=== PATIENT | male | born 1980 | race American Indian/Alaskan Native ===

== ENCOUNTER 2020-09-04 09:41 | Observation (INO) | payer SELFPAY ==
--- NOTE | 2020-09-04 10:10 | XRay Report ---
CHEST 1 VIEW 09/04/2020 9:03 AM INDICATION / CLINICAL INFORMATION: Chest Pain. COMPARISON: 09/20/2012 FINDINGS: SUPPORT DEVICES: None. HEART / MEDIASTINUM: No significant abnormality. LUNGS / PLEURA: No significant pulmonary or pleural abnormality. No pneumothorax. ADDITIONAL FINDINGS: No significant additional findings. IMPRESSION: No acute abnormality. Signer Name: Khadar Pavon MD Signed: 09/04/2020 10:05 AM Workstation Name: [id number]
[2020-09-04 11:03] LABS: Basophils % (Auto) 0.8 % (0.0-1.8); Eosinophils # (Auto) 0.3 K/mm3 (0.0-0.4); Hematocrit 39.7 % (35.5-45.6); Hemoglobin 13.7 gm/dl (11.8-15.2); Lymphocytes # (Auto) 2.3 K/mm3 (1.2-5.4); Lymphocytes % (Auto) 35.6 % (13.4-35.0); Mean Corpuscular HGB Conc 35 % (32-34); Mean Corpuscular Volume 84 fl (84-94); Monocytes # (Auto) 0.4 K/mm3 (0.0-0.8); Monocytes % (Auto) 5.7 % (0.0-7.3); Platelet Count 215 K/mm3 (140-440); Red Blood Count 4.72 M/mm3 (3.65-5.03); Red Cell Distribution Width 12.9 % (13.2-15.2)
[2020-09-04 11:35] LABS: BUN/Creatinine Ratio 13; Blood Urea Nitrogen 14 mg/dL (9-20); Calcium 9.1 mg/dL (8.4-10.2); Hemolysis Index 25
[2020-09-04] MEDS ORDERED: ONDANSETRON 4 MG ODT TAB PO ONE (14:28)
[2020-09-04] MEDS ORDERED: ALUM-MAG HYDROXIDE-SIMETHICONE 200-200-20MG/5ML ORAL LIQD 30 ML PO ONE (14:28)
[2020-09-04] MEDS ORDERED: HYOSCYAMINE SUBL 0.125 MG TAB SL ONE (14:28)
--- NOTE | 2020-09-04 14:49 | Emergency Department Report ---
<CED VALENZUELA III - Last Filed: 09/04/20 19:28> ED General Adult HPI - General Chief complaint: Chest Pain Stated complaint: CP Time Seen by Provider: 09/04/20 14:22 - Related Data Home Medications Medication Instructions Recorded Confirmed Last Taken Unobtainable 09/04/20 09/04/20 Unknown Allergies Allergy/AdvReac Type Severity Reaction Status Date / Time No Known Allergies Allergy Verified 09/12/15 20:27 ED Past Medical Hx - Medications Home Medications: Home Medications Medication Instructions Recorded Confirmed Last Taken Type Unobtainable 09/04/20 09/04/20 Unknown History ED Course - Reevaluation(s) Reevaluation #2: I reviewed the findings and management of this patient in real-time and I have personally seen and examined this patient and participated in the decision making for this patient with the midlevel. Patient is a 40-year-old male that presents emergency room with right upper quadrant pain. Patient had an ultrasound which showed possible acute cholecystitis. General surgery was cons ulted by the midlevel. General surgery recommends admission to the hospital. I discussed all results with patient. I discussed plan of care with patient. Patient agrees with plan of care and admission. Patient to be admitted to the hospitalist service. 09/04/20 19:29 - Consultations Consultation #1: Hospitalist consulted for admission. Hospitalist to admit patient. 09/04/20 18:29 ED Medical Decision Making - Lab Data Result diagrams: 09/04/20 10:20 09/04/20 10:20 Critical Care Time: Yes Critical care time in (mins) excluding proc time.: 35 Critical Care Time: 35 minutes ED Disposition Clinical Impression: Epigastric abdominal pain, Acute cholecystitis, Nausea Cholelithiases Qualifiers: Cholelithiasis location: gallbladder Cholecystitis presence: with cholecystitis Cholecystitis acuity: acute Biliary obstruction: without biliary obstruction Qualified Code(s): K80.00 - Calculus of gallbladder with acute cholecystitis without obstruction Disposition: OP ADMIT IP TO THIS HOSP Is pt being admited?: Yes Does the pt Need Aspirin: No Condition: Critical Time of Disposition: 19:30 <KOURTNEY TAYLOR - Last Filed: 09/04/20 21:24> ED General Adult HPI - General Source: patient Mode of arrival: Ambulatory Limitations: No Limitations - History of Present Illness Initial comments: Patient is a 40-year-old male presents emergency room with complaints of epigastric abdominal pain that began 2 days ago. He states that the pain is intermittent sharp stabbing pain. He states that when the pain comes on he feels like he wants to pass out and feels short of breath. He states that when the pain resolves he does not have shortness of breath. He states that the pain feels like it radiates up into the chest. He has associated nausea. He denies any vomiting, diarrhea, fever, leg swelling, cough. He denies any recent travel, recent surgery, recent immobilization, hormone use, sick contacts. He has a past medical history of diabetes. No allergies to medications. He denies any past abdominal surgical history. He states he had a normal bowel movement this morning. He denies any family cardiac history or family history of DVT/PE. ED Review of Systems ROS: Stated complaint: CP Other details as noted in HPI Comment: All other systems reviewed and negative ED Past Medical Hx - Social History Smoking Status: Never Smoker ED Physical Exam - General Limitations: No Limitations General appearance: alert, in no apparent distress - Head Head exam: Present: atraumatic, normocephalic - Eye Eye exam: Present: normal appearance - ENT ENT exam: Present: mucous membranes moist - Respiratory Respiratory exam: Present: normal lung sounds bilaterally. Absent: respiratory distress, wheezes, rales, rhonchi, stridor, chest wall tenderness, accessory muscle use, decreased breath sounds, prolonged expiratory - Cardiovascular Cardiovascular Exam: Present: regular rate, normal rhythm, normal heart sounds. Absent: systolic murmur, diastolic murmur, rubs, gallop - GI/Abdominal GI/Abdominal exam: Present: soft, tenderness (epigastric), normal bowel sounds, other (negative murphys sign, no mcburneys point ttp, negative garcia turners and cullens sign ). Absent: distended, guarding, rebound, rigid - Neurological Exam Neurological exam: Present: alert, oriented X3 - Psychiatric Psychiatric exam: Present: normal affect, normal mood - Skin Skin exam: Present: warm, dry, intact ED Course Vital Signs 09/04/20 09/04/20 09/04/20 09:43 18:31 18:40 Temperature 98.5 F Pulse Rate 81 78 Respiratory 20 16 16 Rate Blood Pressure 146/95 Blood Pressure 136/90 [Left] O2 Sat by Pulse 100 99 99 Oximetry - Reevaluation(s) Reevaluation #1: 09/04/20 18:[address] Valenzuela, ER attending advised to discuss with general surgery 09/04/20 18:[address] Powers, general surgery regarding patient history, presentation, results, advised that patient is not having vomiting, fever, no leukocytosis, he states that given ultrasound findings of possible acute cholecystitis, he advised to admit patient to hospital service, give Zosyn, have patient n.p.o. at midnight, will evaluate tomorrow morning for possible surgery 09/04/20 18:[address] Arriola, hospitalist will call back, currently with another patient, advised may be given to overnight hospitalist 09/04/20 18:[address] Arriola, hospitalist who will accept and resume care of patient, will admit to hospitalist service ED Medical Decision Making - Lab Data Result diagrams: 09/04/20 10:20 09/04/20 10:20 Lab Results 09/04/20 09/04/20 09/04/20 Range/Units 10:20 10:20 12:47 WBC 6.4 (4.5-11.0) K/mm3 RBC 4.72 (3.65-5.03) M/mm3 Hgb 13.7 (11.8-15.2) gm/dl Hct 39.7 (35.5-45.6) % MCV 84 (84-94) fl MCH 29 (28-32) pg MCHC 35 H (32-34) % RDW 12.9 L (13.2-15.2) % Plt Count 215 (140-440) K/mm3 Lymph % (Auto) 35.6 H (13.4-35.0) % [place] % (Auto) 5.7 (0.0-7.3) % Eos % (Auto) 5.0 H (0.0-4.3) % Baso % (Auto) 0.8 (0.0-1.8) % Lymph # (Auto) 2.3 (1.2-5.4) K/mm3 [place] # (Auto) 0.4 (0.0-0.8) K/mm3 Eos # (Auto) 0.3 (0.0-0.4) K/mm3 Baso # (Auto) 0.0 (0.0-0.1) K/mm3 Seg Neutrophils % 52.9 (40.0-70.0) % Seg Neutrophils # 3.4 (1.8-7.7) K/mm3 Sodium 136 L (137-145) mmol/L Potassium 4.1 (3.6-5.0) mmol/L Chloride 101.9 (98-107) mmol/L Carbon Dioxide 25 (22-30) mmol/L Anion Gap 13 mmol/L BUN 14 (9-20) mg/dL Creatinine 1.1 (0.8-1.3) mg/dL Estimated GFR > 60 ml/min BUN/Creatinine Ratio 13 % Glucose 225 H (75-100) mg/dL Calcium 9.1 (8.4-10.2) mg/dL Total Bilirubin (0.1-1.2) mg/dL Direct Bilirubin (0-0.2) mg/dL Indirect Bilirubin mg/dL AST (5-40) units/L ALT (7-56) units/L Alkaline Phosphatase (35-129) units/L Troponin T < 0.010 < 0.010 (0.00-0.029) ng/mL Total Protein (6.3-8.2) g/dL Albumin (3.9-5) g/dL Albumin/Globulin Ratio % Lipase (13-60) units/L 10/30/20 Range/Units 14:27 WBC (4.5-11.0) K/mm3 RBC (3.65-5.03) M/mm3 Hgb (11.8-15.2) gm/dl Hct (35.5-45.6) % MCV (84-94) fl MCH (28-32) pg MCHC (32-34) % RDW (13.2-15.2) % Plt Count (140-440) K/mm3 Lymph % (Auto) (13.4-35.0) % [place] % (Auto) (0.0-7.3) % Eos % (Auto) (0.0-4.3) % Baso % (Auto) (0.0-1.8) % Lymph # (Auto) (1.2-5.4) K/mm3 [place] # (Auto) (0.0-0.8) K/mm3 Eos # (Auto) (0.0-0.4) K/mm3 Baso # (Auto) (0.0-0.1) K/mm3 Seg Neutrophils % (40.0-70.0) % Seg Neutrophils # (1.8-7.7) K/mm3 Sodium (137-145) mmol/L Potassium (3.6-5.0) mmol/L Chloride (98-107) mmol/L Carbon Dioxide (22-30) mmol/L Anion Gap mmol/L BUN (9-20) mg/dL Creatinine (0.8-1.3) mg/dL Estimated GFR ml/min BUN/Creatinine Ratio % Glucose (75-100) mg/dL Calcium (8.4-10.2) mg/dL Total Bilirubin 0.40 (0.1-1.2) mg/dL Direct Bilirubin < 0.2 (0-0.2) mg/dL Indirect Bilirubin 0.2 mg/dL AST 33 (5-40) units/L ALT 43 (7-56) units/L Alkaline Phosphatase 68 (35-129) units/L Troponin T (0.00-0.029) ng/mL Total Protein 8.0 (6.3-8.2) g/dL Albumin 4.6 (3.9-5) g/dL Albumin/Globulin Ratio 1.4 % Lipase 24 (13-60) units/L - EKG Data EKG shows normal: sinus rhythm, intervals, QRS complexes Rate: normal - EKG Data 09/04/20 21:23 no STEMI - Radiology Data Radiology results: report reviewed CT ABDOMEN AND PELVIS WITH CONTRAST INDICATION: Upper abdominal pain CONTRAST: 100 cc Omnipaque 300 IV COMPARISON: None available. All CT scans at this location are performed using CT dose reduction for ALARA by means of automated exposure control. FINDINGS: Lung bases are clear. No pneumoperitoneum is noted. Mild fatty infiltration of the liver is seen without obvious focal lesion. Liver is at the upper end of the normal range in size and has a length of 17.9 cm. Spleen appears within normal limits. I see no abnormalities of the kidneys, adrenals, pancreas, or bile ducts. Gallbladder appears markedly contracted and contains a diffuse band of hyperdensity which I believe likely represents innumerable tiny calculi with at least 2 larger calculi measuring up to 3 mm. Gallbladder wall appears edematous. No bowel or urinary obstructive changes are seen. No lymphadenopathy is noted. No free fluid is seen. Appendix appears within normal limits. IMPRESSION: Cholelithiasis in a contracted gallbladder with apparent wall edema. Findings could indicate acute cholecystitis. Clinical correlation is suggested. Hepatobiliary scintigraphy and ultrasound may be useful. Signer Name: Matthew Alonso MD Signed: 09/04/2020 4:07 PM Workstation Name: [id number] Transcribed By: Dictated By: Matthew Alonso MD Electronically Authenticated By: Matthew Alonso MD Signed Date/Time: 09/04/20 1607 DD/ 1600 TD/TT: Ordering Physician: MASON GUSMAN Date of Service: 09/04/20 Procedure(s): US abdomen limited Accession Number(s): [id number] cc: MASON GUSMAN ULTRASOUND ABDOMEN, LIMITED (RIGHT UPPER QUADRANT) INDICATION / CLINICAL INFORMATION: upper abd pain, abnormal CT. COMPARISON: CT abdomen and pelvis dated 09/04/2020 FINDINGS: PANCREAS: Visualized portion shows no significant abnormality. LIVER: No significant abnormality. GALLBLADDER: There is an calcified gallstone at the gallbladder neck. The gallbladder is contracted. There is significant gallbladder wall thickening measuring 4 mm in greatest diameter. Sonographic Hardwick sign was negative. BILE DUCTS: No significant abnormality. Common bile duct measures 3 mm. FREE FLUID: None. ADDITIONAL FINDINGS: None. IMPRESSION: 1. Calcified gallstone noted at the gallbladder neck. There is gallbladder wall thickening however this could be secondary to it being collapsed. With the Sonographic Hardwick sign being negative, nuclear medicine HIDA scan would be helpful for evaluation of acute cholecystitis. Signer Name: Mainor Eugene MD Signed: 09/04/2020 6:14 PM Workstation Name: [id number] Transcribed By: Dictated By: MAINOR EUGENE Electronically Authenticated By: MAINOR EUGENE Signed Date/Time: 09/04/201813 DD/ 05 TD/TT: CXR with no acute process - Medical Decision Making Patient is a 40-year-old male presents emergency room with complaints of epigastric abdominal pain that began 2 days ago. He states that the pain is intermittent sharp stabbing pain. He states that when the pain comes on he feels like he wants to pass out and feels short of breath. He states that when the pain resolves he does not have shortness of breath. He states that the pain feels like it radiates up into the chest. He has associated nausea. He denies any vomiting, diarrhea, fever, leg swelling, cough. He denies any recent travel, recent surgery, recent immobilization, hormone use, sick contacts. He has a past medical history of diabetes. No allergies to medications. He denies any past abdominal surgical history. He states he had a normal bowel movement this morning. He denies any family cardiac history or family history of DVT/PE. VSS. on exam: epigastric abd ttp, no guarding, no rebound, no rigidity, no peritoneal signs, normal bowel sounds. labs are stable. CXR with no acute process. labs and XR and EKG ordered prior to my examination. he is presenting for abd pain not chest pain. CT abd pelvis: Cholelithiasis in a contracted gallbladder with apparent wall edema. Findings could indicate acute cholecystitis. Clinical correlation is suggested. Hepatobiliary scintigraphy and ultrasound may be useful. US abdomen: 1. Calcified gallstone noted at the gallbladder neck. There is gallbladder wall thickening however this could be secondary to it being collapsed. With the Sonographic Hardwick sign being negative, nuclear medicine HIDA scan would be helpful for evaluation of acute cholecystitis. discussed case with Dr. Valenzuela, ER attending advised to discuss with general surgery. Spoke to Dr. Powers, general surgery regarding patient history, presentation, results, advised that patient is not having v omiting, fever, no leukocytosis, he states that given ultrasound findings of possible acute cholecystitis, he advised to admit patient to hospital service, give Zosyn, have patient n.p.o. at midnight, will evaluate tomorrow morning for possible surgery. discussed with Dr. Arriola, hospitalist who will accept and resume care of patient, will admit to hospitalist service. - Differential Diagnosis Cholecystitis, cholelithiasis, pancreatitis, obstruction, GERD, PUD Critical care attestation.: If time is entered above; I have spent that time in minutes in the direct care of this critically ill patient, excluding procedure time. ED Disposition Is pt being admited?: Yes Does the pt Need Aspirin: No
[2020-09-04 15:54] LABS: Alanine Aminotransferase 43 units/L (7-56); Albumin 4.6 g/dL (3.9-5)
--- NOTE | 2020-09-04 16:12 | Cat Scan Report ---
CT ABDOMEN AND PELVIS WITH CONTRAST INDICATION: Upper abdominal pain CONTRAST: 100 cc Omnipaque 300 IV COMPARISON: None available. All CT scans at this location are performed using CT dose reduction for ALARA by means of automated e xposure control. FINDINGS: Lung bases are clear. No pneumoperitoneum is noted. Mild fatty infiltration of the liver is seen without obvious focal lesion. Liver is at the upper end of the normal range in size and has a l ength of 17.9 cm. Spleen appears within normal limits. I see no abnormalities of the kidneys, adrenal s, pancreas, or bile ducts. Gallbladder appears markedly contracted and contains a diffuse band of hyperdensity which I believe l ikely represents innumerable tiny calculi with at least 2 larger calculi measuring up to 3 mm. Gallbl adder wall appears edematous. No bowel or urinary obstructive changes are seen. No lymphadenopathy is noted. No free fluid is seen. Appendix appears within normal limits. IMPRESSION: Cholelithiasis in a contracted gallbladder with apparent wall edema. Findings could indic ate acute cholecystitis. Clinical correlation is suggested. Hepatobiliary scintigraphy and ultrasound may be useful. Signer Name: Matthew Alonso MD Signed: 09/04/2020 4:07 PM Workstation Name: [id number]
[2020-09-04 16:21] LABS: Bilirubin,Direct < 0.2 mg/dL (0-0.2)
--- NOTE | 2020-09-04 18:18 | Ultrasound Report ---
ULTRASOUND ABDOMEN, LIMITED (RIGHT UPPER QUADRANT) INDICATION / CLINICAL INFORMATION: upper abd pain, abnormal CT. COMPARISON: CT abdomen and pelvis dated 09/04/2020 FINDINGS: PANCREAS: Visualized portion shows no significant abnormality. LIVER: No significant abnormality. GALLBLADDER: There is an calcified gallstone at the gallbladder neck. The gallbladder is contracted. There is significant gallbladder wall thickening measuring 4 mm in greatest diameter. Sonographic Mur phy sign was negative. BILE DUCTS: No significant abnormality. Common bile duct measures 3 mm. FREE FLUID: None. ADDITIONAL FINDINGS: None. IMPRESSION: 1. Calcified gallstone noted at the gallbladder neck. There is gallbladder wall thickening however th is could be secondary to it being collapsed. With the Sonographic Hardwick sign being negative, nuclear medicine HIDA scan would be helpful for evaluation of acute cholecystitis. Signer Name: Mainor Simeon MD Signed: 09/04/2020 6:14 PM Workstation Name: [id number]
[2020-09-04] MEDS ORDERED: PIPERACIL/TAZOBACTA 4.5/NS 100 4.5 GM/100 ML VIAL IV ONE (18:34)
--- NOTE | 2020-09-04 19:09 | History and Physical Report ---
History of Present Illness Chief complaint: I am having pain History of present illness: 40-year-old male with obesity presents to ED for evaluation. Patient states that he has experienced abdominal pain over the past 2 days with persistent symptoms over the same timeframe. Patient states that his pain is intermittent, sharp, 56/10, stabbing in nature, without exacerbating or alleviating factors. Patient knowledges nausea. Patient transported to [facility] via private vehicle for further care and evaluation. Patient seen and evaluated in the emergency department. Lab and imaging studies reviewed. Patient underwent CT scan of the abdomen and pelvis which showed findings consistent with acute cholecystitis. Surgical team consulted in ED. Patient pending surgical intervention as per surgical team. Patient denies fever, chills, chest pain, palpitation, productive cough, skin rash, recent ill contacts, or known exposure to COVID-19. No prior admission for review. No medication listed at time of admission for reconciliation. Past History Past Medical History: other (See HPI) Past Surgical History: No surgical history, Other (Reviewed) Social history: . denies: smoking, alcohol abuse, prescription drug abuse Family history: no significant family history Medications and Allergies Allergies Allergy/AdvReac Type Severity Reaction Status Date / Time No Known Allergies Allergy Verified 09/12/15 20:27 Home Medications Medication Instructions Recorded Confirmed Last Taken Type Unobtainable 09/04/20 09/04/20 Unknown History Review of Systems Constitutional: no weight loss, no weight gain, no fever, no chills Ears, nose, mouth and throat: no ear pain, no ear discharge, no nose pain, no nasal congestion Cardiovascular: no chest pain, no orthopnea, no rapid/irregular heart beat, no syncope Respiratory: no cough, no excessive sputum, no shortness of breath Gastrointestinal: abdominal pain, nausea, no vomiting, no melena, no hematochezia Genitourinary Male: no hematuria, no flank pain, no discharge, no urinary hesitancy, no nocturia Rectal: no pain, no incontinence Musculoskeletal: no neck stiffness, no neck pain Integumentary: no rash, no redness, no sores Neurological: no head injury, no transient paralysis, no weakness, no parathesias Psychiatric: no anxiety, no change in sleep habits, no insomnia, no change in libido, no hallucinations Endocrine: no heat intolerance, no polyphagia Hematologic/Lymphatic: no easy bruising, no easy bleeding, no lymphadenopathy Allergic/Immunologic: no allergic rhinitis, no wheezing, no persistent infections, no angioedema Exam - Constitutional Vitals: Temp Pulse Resp BP Pulse Ox 98.5 F 78 16 136/90 99 09/04/20 09:43 09/04/20 18:31 09/04/20 18:40 09/04/20 18:31 09/04/20 18:40 General appearance: Present: mild distress - EENT Eyes: Present: PERRL ENT: hearing intact, clear oral mucosa - Neck Neck: Present: supple, normal ROM - Respiratory Respiratory effort: normal Respiratory: bilateral: CTA - Cardiovascular Heart Sounds: Present: S1 & S2. Absent: rub, click - Extremities Extremities: pulses symmetrical, No edema Peripheral Pulses: within normal limits - Abdominal General gastrointestinal: Present: soft, tender, non-distended, normal bowel sounds Male genitourinary: Present: normal - Integumentary Integumentary: Present: clear, warm, dry - Musculoskeletal Musculoskeletal: gait normal, strength equal bilaterally - Psychiatric Psychiatric: appropriate mood/affect, intact judgment & insight - Neurologic Neurologic: CNII-XII intact, moves all extremities HEART Score - HEART Score Troponin: Troponin T < 0.010 ng/mL (0.00-0.029) 09/04/20 12:47 Results - Labs CBC & Chem 7: 09/04/20 10:20 09/04/20 10:20 Labs: Abnormal lab results 09/04/20 09/04/20 Range/Units 10: 10:20 MCHC 35 H (32-34) % RDW 12.9 L (13.2-15.2) % Lymph % (Auto) 35.6 H (13.4-35.0) % Eos % (Auto) 5.0 H (0.0-4.3) % Sodium 136 L (137-145) mmol/L Glucose 225 H (75-100) mg/dL Assessment and Plan - Patient Problems (1) Acute cholecystitis Current Visit: Yes Status: Acute Plan to address problem: CT scan abdomen and pelvis, surgical team consulted, patient pending surgical intervention as per surgical team. N.p.o., IV fluid resuscitation, bowel rest, pain control, supportive care. (2) Obesity (BMI 30.0-34.9) Current Visit: Yes Status: Acute Plan to address problem: Balanced diet, increase physical activity at discharge. (3) DVT prophylaxis Current Visit: Yes Status: Acute Plan to address problem: SCD to bilateral lower extremities while in bed, patient is ambulatory.
[2020-09-04] MEDS ORDERED: ONDANSETRON 4 MG/2 ML INJ IV PRN (19:10)
[2020-09-04] MEDS ORDERED: ACETAMINOPHEN 325 MG TAB PO PRN (19:10)
[2020-09-04] MEDS ORDERED: ALBUTEROL 2.5 MG/3 ML NEBU IH PRN (19:10)
[2020-09-05] MEDS: SODIUM CHLORIDE 0.9% 1000 ML 1,000 ML IV SCH ×2 (00:01→07:04)
[2020-09-05] MEDS: MORPHINE 2 MG/1 ML INJ IV PRN ×2 (07:00→20:46)
[2020-09-05] MEDS: INSULIN LISPRO 100 UNIT/ML VIAL 3 mL SUB-Q SCH ×4 (08:29→22:00)
[2020-09-05 09:30] LABS: BUN/Creatinine Ratio 8; Blood Urea Nitrogen 9 mg/dL (9-20); Calcium 8.6 mg/dL (8.4-10.2); Hemolysis Index 3
[2020-09-05] MEDS ORDERED: LIDOCAINE (1%) 10 MG/1 ML VIAL 20 ML MDV ONE (10:06)
[2020-09-05] MEDS ORDERED: BUPIVACAINE/PF (0.5%) 5 MG/1 ML 30 ML VIAL INFILTRATI ONE ×2 (10:06→11:25)
[2020-09-05] MEDS ORDERED: SODIUM CHLORIDE 0.9% 100 ML ONE (10:19)
--- NOTE | 2020-09-05 10:24 | Consultation ---
History of Present Illness Consult date: 09/05/20 Reason for consult: gallstones Chief complaint: Hx in chart verified by pt Upper abd pain for 2 days u/s and CT c/w acute cholecystitis No hx biliary colic/etc. No hx GI dz +DM (insulin)- last HgA1c unknown Past History Past Medical History: diabetes, other (See HPI) Past Surgical History: No surgical history, Other (Reviewed) Social history: . denies: smoking, alcohol abuse, prescription drug abuse Family history: no significant family history Medications and Allergies Allergies Allergy/AdvReac Type Severity Reaction Status Date / Time No Known Allergies Allergy Verified 09/12/15 20:27 Home Medications Medication Instructions Recorded Confirmed Last Taken Type Insulin Glargine/Lixisenatide 15 units SQ DAILY 09/05/20 09/05/20 Unknown History [Soliqua 100 Unit-33 Mcg/ml Pen] Active Meds: Active Medications Acetaminophen (Tylenol) 650 mg PO Q4H PRN PRN Reason: Pain MILD(1-3)/Fever >100.5/CROWE Albuterol (Proventil) 2.5 mg IH Q4HRT PRN PRN Reason: Shortness Of Breath Hydromorphone HCl (Dilaudid) 0.5 mg IV Q3H PRN PRN Reason: Pain , Severe (7-10) Sodium Chloride (Nacl 0.9% 1000 Ml) 1,000 mls @ 125 mls/hr IV DIRECT ARELY Last Admin: 09/05/20 07:04 Dose: 125 mls/hr Documented by: Insulin Human Lispro (Humalog) 0 unit SUB-Q ACHS ARELY; Protocol Last Admin: 09/05/20 08:29 Dose: Not Given Documented by: Morphine Sulfate (Morphine) 1 mg IV Q4H PRN PRN Reason: Pain, Moderate (4-6) Last Admin: 09/05/20 07:00 Dose: 1 mg Documented by: Ondansetron HCl (Zofran) 4 mg IV Q8H PRN PRN Reason: Nausea And Vomiting Sodium Chloride (Sodium Chloride Flush Syringe 10 Ml) 10 ml IV BID ARELY Last Admin: 09/05/20 08:33 Dose: Not Given Documented by: Sodium Chloride (Sodium Chloride Flush Syringe 10 Ml) 10 ml IV PRN PRN PRN Reason: LINE FLUSH Exam Vital Signs Temp Pulse Resp BP Pulse Ox 98.5 F 81 20 146/95 100 09/04/20 09:43 09/04/20 09:43 09/04/20 09:43 09/04/20 09:43 09/04/20 09:43 - General physical appearance Positive: well developed, no distress - Abdomen Abdomen: Present: soft, tender, bowel sounds normal, other (+mild TTP epig/RUQ; +mild Hardwick's sign; no scars/hernias). Absent: surgical scars Results - Labs 09/04/20 10:09/05/20 04:00 Abnormal lab results 09/04/20 09/04/20 09/04/20 Range/Units : 10: 23:34 MCHC 35 H (32-34) % RDW 12.9 L (13.2-15.2) % Lymph % (Auto) 35.6 H (13.4-35.0) % Eos % (Auto) 5.0 H (0.0-4.3) % Sodium 136 L (137-145) mmol/L Glucose 225 H (75-100) mg/dL POC Glucose 115 H (70-105) mg/dL 09/05/20 09/05/20 Range/Units 04:00 08:24 MCHC (32-34) % RDW (13.2-15.2) % Lymph % (Auto) (13.4-35.0) % Eos % (Auto) (0.0-4.3) % Sodium 135 L (137-145) mmol/L Glucose 144 H (75-100) mg/dL POC Glucose 132 H (70-105) mg/dL Diabetes panel 09/04/20 09/04/20 09/05/20 Range/Units : 14:27 04:00 Sodium 136 L 135 L (137-145) mmol/L Potassium 4.1 3.9 (3.6-5.0) mmol/L Chloride 101.9 101.1 (98-107) mmol/L Carbon Dioxide 25 26 (22-30) mmol/L BUN 14 9 (9-20) mg/dL Creatinine 1.1 1.1 (0.8-1.3) mg/dL Glucose 225 H 144 H (75-100) mg/dL Calcium 9.1 8.6 (8.4-10.2) mg/dL AST 33 (5-40) units/L ALT 43 (7-56) units/L Alkaline Phosphatase 68 (35-129) units/L Total Protein 8.0 (6.3-8.2) g/dL Albumin 4.6 (3.9-5) g/dL Calcium panel 09/04/20 09/04/20 09/05/20 Range/Units 10: 14:27 04:00 Calcium 9.1 8.6 (8.4-10.2) mg/dL Albumin 4.6 (3.9-5) g/dL Pituitary panel 09/04/20 09/05/20 Range/Units 10: 04:00 Sodium 136 L 135 L (137-145) mmol/L Potassium 4.1 3.9 (3.6-5.0) mmol/L Chloride 101.9 101.1 (98-107) mmol/L Carbon Dioxide 25 26 (22-30) mmol/L BUN 14 9 (9-20) mg/dL Creatinine 1.1 1.1 (0.8-1.3) mg/dL Glucose 225 H 144 H (75-100) mg/dL Calcium 9.1 8.6 (8.4-10.2) mg/dL Adrenal panel 09/04/20 09/04/20 09/05/20 Range/Units 10: 14:27 04:00 Sodium 136 L 135 L (137-145) mmol/L Potassium 4.1 3.9 (3.6-5.0) mmol/L Chloride 101.9 101.1 (98-107) mmol/L Carbon Dioxide 25 26 (22-30) mmol/L BUN 14 9 (9-20) mg/dL Creatinine 1.1 1.1 (0.8-1.3) mg/dL Glucose 225 H 144 H (75-100) mg/dL Calcium 9.1 8.6 (8.4-10.2) mg/dL Total Bilirubin 0.40 (0.1-1.2) mg/dL AST 33 (5-40) units/L ALT 43 (7-56) units/L Alkaline Phosphatase 68 (35-129) units/L Total Protein 8.0 (6.3-8.2) g/dL Albumin 4.6 (3.9-5) g/dL Assessment and Plan Early acute cholecystitis-- to OR for LC DM- pt aware that inc risk of infection/wound healing issues with DM diagnosis Surgical risk discussed (see consent)
--- NOTE | 2020-09-05 10:35 | Anesthesia Consultation ---
Anesthesia Consult and Med Hx Date of service: 09/05/20 - Airway Anesthetic Teeth Evaluation: Good ROM Head & Neck: Adequate Mental/Hyoid Distance: Adequate Mallampati Class: Class I Intubation Access Assessment: Good - Pulmonary Exam CTA: Yes - Cardiac Exam Cardiac Exam: RRR - Pre-Operative Health Status ASA Pre-Surgery Classification: ASA2 Proposed Anesthetic Plan: General - Pulmonary Hx Smoking: No Hx Respiratory Symptoms: No Hx Sleep Apnea: No - Cardiovascular System Hx Hypertension: No Hx Heart Attack/AMI: No Hx Angina: No Hx Pacemaker: No Hx Internal Defibrillator: No - Central Nervous System Hx Neuromuscular Disorder: No Hx Seizures: No CVA: No Hx Psychiatric Problems: No - Endocrine Hx Renal Disease: No Hx Liver Disease: No Hx Insulin Dependent Diabetes: Yes Hx Thyroid Disease: No - Other Systems Hx Alcohol Use: Yes (Occasinally) Hx Cancer: No Hx Obesity: Yes (BMI- 30.1kg) - Additional Comments Anesthesia Medical History Comments: Denied anesthesia related complication
--- NOTE | 2020-09-05 10:36 | Anesthesia Day of Surgery ---
Anesthesia Day of Surgery - Day of Surgery Patient Examined: Yes Patient H&P Reviewed: Yes Patient is NPO: Yes Beta Blockers: No Cardiac Clearance: No Pulmonary Clearance: No
[2020-09-05] MEDS ORDERED: LIDOCAINE MPF (2%) 20 MG/1 ML VIAL 5 ML ONE (10:49)
[2020-09-05] MEDS ORDERED: ROCURONIUM 50 MG/5 ML INJ IV ONE (10:49)
[2020-09-05] MEDS ORDERED: HYDROmorphone 1 MG/1 ML INJ ONE ×2 (10:49→12:17)
[2020-09-05] MEDS ORDERED: ONDANSETRON 4 MG/2 ML INJ ONE (10:49)
[2020-09-05] MEDS ORDERED: propofoL 200 MG/20 ML VIAL IV ONE (10:49)
--- NOTE | 2020-09-05 11:09 | Progress Note ---
<EYALMARCELA - Last Filed: 09/05/20 15:41> Assessment and Plan - Patient Problems (1) Acute cholecystitis Current Visit: Yes Status: Acute Plan to address problem: CT scan abdomen and pelvis-showed cholecystitis surgical team consulted continue IV fluid infusion, S/p cholecytomy patient said he is hungry-will start MS diet (2) Epigastric abdominal pain Current Visit: Yes Status: Acute Plan to address problem: pain management NPO (3) Nausea Current Visit: Yes Status: Acute Plan to address problem: continue ant-emetic (4) Obesity (BMI 30.0-34.9) Current Visit: Yes Status: Acute Plan to address problem: Discussed lifestyle modification Health diet and weight management (5) DVT prophylaxis Current Visit: Yes Status: Acute Plan to address problem: SCD Subjective Date of service: 09/05/20 Principal diagnosis: Acute cholecystitis Interval history: patient seen at bedside. reviewed lab, mar, and v/s. Patient came with abdominal pain, CT of the abdomen/pelvis showed cholecystitis-general surgeon consulted. S/p cholecystectomy. Incision site intact. patient reports pain level 4/10. He is asking for food. Objective - Constitutional Vitals: Vital Signs - 12hr 09/04/20 09/05/20 09/05/20 23:15 06:43 07:44 Temperature 93.0 F L 98.4 F 98.5 F Pulse Rate 69 86 75 Respiratory 18 18 18 Rate Blood Pressure 114/85 121/87 114/87 O2 Sat by Pulse 99 98 97 Oximetry General appearance: Present: no acute distress, well-nourished - EENT Eyes: PERRL, EOM intact ENT: hearing intact, clear oral mucosa Ears: bilateral: normal - Neck Neck: supple, normal ROM - Respiratory Respiratory effort: normal Respiratory: bilateral: CTA - Breasts Breasts: normal - Cardiovascular Rhythm: regular Heart Sounds: Present: S1 & S2. Absent: gallop, rub Extremities: pulses intact, No edema, normal color, Full ROM - Gastrointestinal General gastrointestinal: Present: tender, normal bowel sounds, other (s/p cholecystectomy) - Genitourinary Male genitourinary: normal - Integumentary Integumentary: clear, warm, dry - Musculoskeletal Musculoskeletal: 1, strength equal bilaterally - Neurologic Neurologic: moves all extremities - Psychiatric Psychiatric: memory intact, appropriate mood/affect, intact judgment & insight - Allied health notes Allied health notes reviewed: nursing - Labs CBC & Chem 7: 09/04/20 10:20 09/05/20 04:00 Labs: Abnormal lab results 09/04/20 09/04/20 09/05/20 Range/Units 10:20 23:34 04:00 Sodium 136 L 135 L (137-145) mmol/L Glucose 225 H 144 H (75-100) mg/dL POC Glucose 115 H (70-105) mg/dL 09/05/20 Range/Units 08:24 Sodium (137-145) mmol/L Glucose (75-100) mg/dL POC Glucose 132 H (70-105) mg/dL HEART Score - HEART Score Troponin: Troponin T < 0.010 ng/mL (0.00-0.029) 09/04/20 12:47 <SARAH CENTENO R - Last Filed: 09/05/20 18:55> Assessment and Plan I saw and evaluated the patient. I agree with the findings and the plan of care as documented in the Nurse Practitioner's~note. Objective - Constitutional Vitals: Vital Signs - 12hr 09/05/20 09/05/20 09/05/20 07:44 12:01 12:05 Temperature 98.5 F 97.8 F Pulse Rate 75 74 66 Respiratory 18 12 10 L Rate Blood Pressure 114/87 128/85 123/90 Blood Pressure [Left] O2 Sat by Pulse 97 98 99 Oximetry 09/05/20 09/05/20 09/05/20 12:10 12:15 12:18 Temperature Pulse Rate 82 71 Respiratory 11 L 13 12 Rate Blood Pressure 142/86 139/90 Blood Pressure [Left] O2 Sat by Pulse 100 100 Oximetry 09/05/20 09/05/20 09/05/20 12:29 12:30 12:38 Temperature Pulse Rate 79 Respiratory 12 12 12 Rate Blood Pressure 123/85 Blood Pressure [Left] O2 Sat by Pulse 100 Oximetry 09/05/20 09/05/20 09/05/20 12:40 12:56 13:00 Temperature 99.1 F 98.2 F 98.2 F Pulse Rate 82 68 76 Respiratory 12 13 18 Rate Blood Pressure 128/89 127/87 Blood Pressure 127/87 [Left] O2 Sat by Pulse 100 100 Oximetry 09/05/20 16:39 Temperature 98.8 F Pulse Rate 91 H Respiratory 18 Rate Blood Pressure 128/94 Blood Pressure [Left] O2 Sat by Pulse 100 Oximetry - Labs CBC & Chem 7: 09/04/20 10:20 09/05/20 04:00 Labs: Abnormal lab results 09/04/20 09/05/20 09/05/20 Range/Units 23:34 04:00 08:24 Sodium 135 L (137-145) mmol/L Glucose 144 H (75-100) mg/dL POC Glucose 115 H 132 H (70-105) mg/dL 09/05/20 Range/Units 16:58 Sodium (137-145) mmol/L Glucose (75-100) mg/dL POC Glucose 197 H (70-105) mg/dL HEART Score - HEART Score Troponin: Troponin T < 0.010 ng/mL (0.00-0.029) 09/04/20 12:47
[2020-09-05] MEDS ORDERED: ceFAZolin 1 GM VIAL ONE (11:23)
[2020-09-05] MEDS ORDERED: LIDOCAINE (1%) 10 MG/1 ML VIAL 20 ML MDV INFILTRATI ONE (11:25)
[2020-09-05] MEDS ORDERED: SODIUM CHLORIDE 0.9% IRRIG SOLN 2000 ML IR ONE (11:25)
[2020-09-05] MEDS ORDERED: GLYCOPYRROLATE 0.4 MG/2 ML INJ ONE (11:41)
[2020-09-05] MEDS ORDERED: NEOSTIGMINE 10MG/10 ML INJ MDV ONE (11:41)
[2020-09-05] MEDS ORDERED: HYDROmorphone 1 MG/1 ML INJ IV PRN (12:13)
[2020-09-05] MEDS ORDERED: ONDANSETRON 4 MG/2 ML INJ IV PRN (12:13)
[2020-09-05] MEDS: HYDROmorphone 1 MG/1 ML INJ IV PRN ×3 (12:18→12:38)
[2020-09-05] MEDS ORDERED: SODIUM CHLORIDE 0.9% 1000 ML 1,000 ML ONE (12:20)
--- NOTE | 2020-09-05 12:25 | Operative Report ---
STAFF PHYSICIAN: Jameson Powers MD PREOPERATIVE DIAGNOSIS: Acute cholecystitis. POSTOPERATIVE DIAGNOSIS: Acute cholecystitis. OPERATION PERFORMED: Laparoscopic cholecystectomy. INDICATION: A 40-year-old gentleman with signs, symptoms, and radiologic evidence consistent with the above diagnosis, brought to the operating room urgently. ANESTHESIA: General endotracheal anesthesia. SPECIMENS SENT: Gallbladder. FINDINGS: Evidence of acute cholecystitis and gallbladder filled with stones. BLOOD LOSS: Minimal. COMPLICATIONS: None. DRAINS: None. DESCRIPTION OF PROCEDURE: After informed consent was obtained, the patient was taken to the operating room, placed under general endotracheal anesthesia. The patient was prepped and draped in standard surgical fashion. Surgical timeout was performed. VTE and antibiotic prophylaxis have been given appropriately. A curvilinear incision was made to the umbilicus. Dissection was carried down to and through the abdominal fascia using standard Sonia trocar technique. Sonia trocar was placed. Pneumoperitoneum was established. There were no signs of intermittent intra-abdominal injury. Three 5 mm ports were placed in the epigastric and right upper quadrant under direct visualization without complication. The patient was placed in reverse Trendelenburg left side down position. Gallbladder was grasped and retracted cephalad and laterally. Critical view was dissected free. Two clips were placed proximally on the cystic duct, one distally and was divided. Cystic artery was clipped and divided in similar fashion. Gallbladder was removed from the liver bed using electrocautery with full hemostasis. Gallbladder was placed in an Endobag, brought it out through the umbilical port. Pneumoperitoneum was reestablished. Clips were in good position. There was no bleeding from the gallbladder. Ports removed under direct visualization under low pneumoperitoneum. There was no bleeding from the port site where the gallbladder bed. Sonia trocar was removed. Pneumoperitoneum was manually released. A 0 Vicryl was used to close the umbilical fascial defect in a [id number] fashion. A 4-0 Monocryl was used to close all skin incisions. Sterile dressings were applied. The patient was extubated and taken to recovery room in stable fashion. JOB# [id number] TF/NTS
--- NOTE | 2020-09-05 13:01 | Post Anesthesia Evaluation ---
- Post Anesthesia Evaluation Patient Participated: Yes Airway Patent: Yes Stable Respiratory Function: Yes Nausea/Vomiting: No Temp > 96.8F: Yes Pain Manageable: Yes Adequeate Hydration: Yes Anesthesia Complications: No Block Receding Appropriately: Not Applicable Patient on Ventilator: No
[2020-09-06] MEDS: SODIUM CHLORIDE 0.9% 1000 ML 1,000 ML IV SCH (05:07)
[2020-09-06] MEDS: HYDROmorphone 1 MG/1 ML INJ IV PRN ×2 (08:10→13:33)
[2020-09-06] MEDS: INSULIN LISPRO 100 UNIT/ML VIAL 3 mL SUB-Q SCH ×2 (08:57→12:00)
[2020-09-06 12:23] VITALS: BP 125/91
--- NOTE | 2020-09-06 12:31 | Discharge Summary ---
<MARCELA BIRCH - Last Filed: 09/06/20 15:43> Providers - Providers Date of Admission: 09/04/20 19:10 Date of discharge: 09/06/20 Attending physician: SARAH CENTENO 09/05/20 08:29 Consult to Physician [CONS] Routine Comment: Consulting Provider: SUSY TAN Physician Instructions: Reason For Exam: cholecystitis Primary care physician: JUSTYNA MONTELONGO [place] Hospitalization Condition: Stable Disposition: - TO HOME OR SELFCARE - Discharge Diagnoses (1) Epigastric abdominal pain Status: Acute Comment: condition resolved (2) Nausea Status: Acute Comment: resolved (3) Obesity (BMI 30.0-34.9) Status: Acute Comment: Discussed weight management Healthy diet and regular excercise when stable (4) Acute cholecystitis Status: Acute Comment: S/p cholecystectomy patient seen at bedside. Discussed d/c plan with patient and pts nurse. patient advised to follow up with PCP and his surgeon. Bowel sound position. patient said he is able to ambulate around the room with difficulty and he is tolerating oral feeding without nausea or vomiting. Discussed with the attending and general surgeon-patient is cleared for discharge. patient advised to return to ED with worsening symptoms. patient is d/c Core Measure Documentation - Palliative Care Palliative Care/ Comfort Measures: Not Applicable - Core Measures Any of the following diagnoses?: none Exam - Constitutional Vitals: Temp Pulse Resp BP Pulse Ox 99.0 F 78 18 125/91 95 09/06/20 11:54 09/06/20 11:54 09/06/20 11:54 09/06/20 11:54 09/06/20 11:54 General appearance: Present: no acute distress, well-nourished - EENT Eyes: Present: PERRL ENT: hearing intact, clear oral mucosa - Neck Neck: Present: supple, normal ROM - Respiratory Respiratory effort: normal Respiratory: bilateral: CTA - Cardiovascular Heart Sounds: Present: S1 & S2. Absent: rub, click - Extremities Extremities: pulses symmetrical, No edema Peripheral Pulses: within normal limits - Abdominal General gastrointestinal: Present: soft, tender, non-distended, normal bowel sounds Male genitourinary: Present: normal - Integumentary Integumentary: Present: clear, warm, dry - Musculoskeletal Musculoskeletal: gait normal, strength equal bilaterally - Psychiatric Psychiatric: appropriate mood/affect, intact judgment & insight - Neurologic Neurologic: CNII-XII intact, moves all extremities Plan Follow up with: JUSTYNA MARTINO MD [Primary Care Provider] - 7 Days Prescriptions: Ibuprofen [Motrin 800 MG tab] 800 mg PO Q8HR PRN #30 tablet PRN Reason: Pain, Moderate (4-6) <SARAH CENTENO - Last Filed: 09/06/20 18:17> Providers - Providers Date of Admission: 09/04/20 19:10 Attending physician: SARAH CENTENO 09/05/20 08:29 Consult to Physician [CONS] Routine Comment: Consulting Provider: SUSY TAN Physician Instructions: Reason For Exam: cholecystitis Primary care physician: JUSTYNA MARTINO Exam - Constitutional Vitals: Temp Pulse Resp BP Pulse Ox 99.0 F 78 18 125/91 99 09/06/20 11:54 09/06/20 11:54 09/06/20 11:54 09/06/20 11:54 09/06/20 14:59
== END 2020-09-06 17:55 | disposition home or self-care (01) ==
LOC: ED 09:41 → 3A 19:10 → 3B 21:02
PROVIDERS: ADMIT Internal Medicine; ATTEND Internal Medicine
DX: K81.0 Acute cholecystitis (principal); E66.9 Obesity, unspecified; Z68.30 Body mass index [BMI] 30.0-30.9, adult
CPT/HCPCS: 36415; 47562; 71045; 74177; 76705; 80048; 80076; 82962; 83690; 84484; 85025; 88304; 93005; 96361; 96365; 96375; 96376; 99291; A4217; G0378; J0690; J1170; J2270; J2405; J2543; J2704; J2710; J7030; Q9967; Q0162